=== PATIENT | female | born 1960 | race Caucasian/White ===

== ENCOUNTER → 2016-05-23 | Outpatient (CLI) | payer BC ==
--- NOTE | 2016-05-23 12:16 | Diagnostic Imaging Report ---
PROCEDURE: MRI lumbar spine. TECHNIQUE: Multiplanar, multisequence MRI of the lumbar spine was performed without contrast. INDICATION: Bilateral groin pain. FINDINGS: Sagittal images show good alignment of the vertebral bodies. Body height is well maintained. No marrow changes are seen to suggest pathologic lesions. No central canal stenosis. The conus medullaris and cauda equina appear normal. T12-L1: Disc appears normal. No facet or ligamentous hypertrophy. L1-L2: Disc appears normal with no facet or ligamentous hypertrophy. L2-L3: Disc contours normal. There is mild posterior facet and ligamentous hypertrophy with no encroachment upon the lateral recesses or neural foramina. L3-L4. There is mild broad-based disc bulge present. There is mild posterior facet and ligamentous hypertrophy. This is causing mild/ moderate encroachment upon the neural foramina bilaterally. L4-L5: There is settling of the disc space with desiccation. Mild central disc protrusion present. Mild posterior facet and ligamentous hypertrophy. This is causing mild foraminal encroachment more prominent on the left. L5-S1: There is loss of disc space height. Mild central disc protrusion. Mild posterior facet and ligamentous hypertrophy. No significant encroachment. The paraspinal soft tissues show peripelvic cysts within the kidneys bilaterally. There is concern of a solid lesion within the left kidney measuring 14 mm. This was not present on previous CT scan of the abdomen in 2009. IMPRESSION: 1. Mild/ moderate degenerative disc and facet disease with some encroachment in the neural foramina bilaterally as described above at L3-L4 and L4-L5. No central canal stenosis. No large disc herniation. 2. Concern of developing mass in the left kidney measuring [address] scan of the abdomen with and without IV contrast is indicated. Dictated by: Dictated on workstation # [id number]
== END ==
LOC: RAD 10:57
PROVIDERS: ATTEND Family Medicine
DX: M54.5 Low back pain (principal); M51.36 Other intervertebral disc degeneration, lumbar region
CPT/HCPCS: 72148